=== PATIENT | male | born 2000 | race African-American/Black ===

== ENCOUNTER 2022-01-17 17:17 | Emergency (ER) | payer OTHER, MEDICAID ==
[~2022-01-17] VITALS: Ht 190 cm; Wt 104.0 kg
--- NOTE | 2022-01-17 17:38 | ED Lower Extremity ---
General Chief Complaint: Lower Extremity Stated Complaint: LEFT KNEE INJURY Source: patient Exam Limitations: no limitations (TRE SCHOFIELD) History of Present Illness Date Seen by Provider: Jan 17, 2022 Time Seen by Provider: 17:20 Initial Comments This 21 year old male presents with left knee pain. Patients states he was playing basketball at the gym when he injured his left knee. Patient states he was jumping up and when he landed he began to experience pain. He rates his pain as a 9/10 and characterizes it as sharp and aching. Patient denies previous injury to left knee. Patient states he is unable to bear weight on the left knee but was able to limp with the support of his friend. Patient has not taken ibuprofen or tylenol. Patient states he has had 7 beers since noon today. Patient denies fever, chest pain, SOA, abdominal pain, or paresthesias. Onset: just prior to arrival Severity: moderate Pain/Injury Location: left knee Method of Injury: other (playing basketball) Modifying Factors: Improves With Immobilization; Worse With Movement; Improves With Rest (TRE SCHOFIELD) Allergies and Home Medications Patient Home Medication List Home Medication List Reviewed: Yes (TRE SCHOFIELD) Review of Systems Constitutional: no symptoms reported EENTM: no symptoms reported Respiratory: no symptoms reported Cardiovascular: no symptoms reported Gastrointestinal: no symptoms reported Genitourinary: no symptoms reported Musculoskeletal: joint pain (left knee pain) Skin: no symptoms reported Psychiatric/Neurological: Other (TRE SCHOFIELD) All Other Systems Reviewed Negative Unless Noted: Yes (TRE SCHOFIELD) Past Xgxyudj-Pnstyq-Sxppnk Hx Patient Social History Tobacco Use?: No Substance use?: No Alcohol Use?: Yes Alcohol type: Beer Alcohol Frequency: Daily (patient reports an average of 15 beers daily) (TRE SCHOFIELD) Past Medical History Surgery/Hospitalization HX: testicular implants 2020 Surgeries: Yes (TRE SCHOFIELD) Physical Exam Vital Signs Vital Signs - First Documented 01/17/22 18:51 Temp 35.8 Pulse 115 Resp 16 B/P (MAP) 155/80 (105) Pulse Ox 98 O2 Delivery Room Air (VAUGHN GAGE MD) Vital Signs Capillary Refill : (TRE SCHOFIELD) Height, Weight, BMI Height: '" Weight: lbs. oz. kg; BMI Method: General Appearance: WD/WN, no apparent distress Cardiovascular: no murmur, tachycardia Respiratory: lungs clear, normal breath sounds, no respiratory distress, no accessory muscle use Gastrointestinal: normal bowel sounds Knees: right knee non-tender, right knee normal inspection, right knee normal range of motion, right knee no evidence of injury; left knee pain, left knee soft tissue tenderness (tenderness along tibiofemoral joint line medially and laterally, tenderness of MCL and LCL with palpation, tenderness of patellar and laxity of patellar ligament, tenderness of patellar tendon, tenderness with gentle movement of patella), left knee swelling (mild edema of anterior left knee) Neurologic/Tendon: normal sensation (L4-S1 intact bilaterally), responds to pain Neurologic/Psychiatric: alert, other (patient has had 7 alcoholic drinks (beer) since noon today) Skin: normal color, warm/dry (TRE SCHOFIELD) Progress/Results/Core Measures Results/Orders My Orders Orders - VAUGHN GAGE MD Knee 3 View Left (01/17/22 18:41) Crutches (01/17/22 19:21) Knee Immobilizer (01/17/22 19:21) (VAUGHN GAGE MD) Vital Signs/I&O 01/17/22 18:51 Temp 35.8 Pulse 115 Resp 16 B/P (MAP) 155/80 (105) Pulse Ox 98 O2 Delivery Room Air (VAUGHN GAGE MD) Progress Progress Note : Progress Note No bony injuries were identified on x-rays. Patient was provided with a knee immobilizer and crutches. Focus of injury was difficult to assess as patient seemed to have tenderness throughout the entire knee joint and pain with any axial pressure. Patient was advised to follow-up with orthopedics and consider MRI if not improving rapidly. See discharge instructions for further discussion. (VAUGHN GAGE MD) Diagnostic Imaging Diagonstic Imaging: Xray Plain Films/CT/US/NM/MRI: knee Comments NAME: LEELEE [facility]ILLAFANA [facility] REC#: [id number] PT STATUS: DEP ER : 2002 PHYSICIAN: VAUGHN GAGE MD ADMIT DATE: 01/17/22/ER FS Signed Date of Exam:01/17/22 KNEE 3 VIEW LEFT EXAMINATION: Left knee 3 views HISTORY: Basketball injury. COMPARISON: None available. FINDINGS: The alignment is normal. No fracture is seen. Joint spaces are normal. There is no joint effusion. IMPRESSION: 1. No fracture. Dictated by: Dictated on workstation # [id number] Dict: 01/17/221855 Trans: 01/17/222110 AS6 [id number] Interpreted by: LORELEI CASTILLO MD Electronically signed by: LORELEI CASTILLO MD 01/17/222110 (VAUGHN GAGE MD) Departure Impression Primary Impression: Left knee injury Qualified Codes: S89.92XA - Unspecified injury of left lower leg, initial encounter Disposition: 01 HOME, SELF-CARE Condition: Stable Departure-Patient Inst. Decision time for Depature: 19:19 (VAUGHN GAGE MD) Referrals: EMIGDIO MONREAL MD, TERRY D MD ZAFUTA, MICHAEL P MD Patient Instructions: Knee Sprain ED Add. Discharge Instructions: Use crutches as needed to avoid weightbearing if weightbearing causes pain or instability. You may use a knee immobilizer, knee brace, or wide Dominik bandages to support any instability in your knee. Take ibuprofen up to 600 mg every 6 hours and/or Tylenol up to 1000 mg every 6 hours as needed for pain. Icing in 20-minute intervals and elevating your knee should help with pain and swelling as well. Follow-up with an orthopedic provider or your primary care provider soon as possible. A list of orthopedic providers is provided below. All discharge instructions reviewed with patient and/or family. Voiced understanding. Medical Student Attestation and Attending Note: I have personally interviewed and examined this patient along with Judy Schofield, MS 4. I have reviewed student documentation including history, physical, and assessments. I agree with the documentation except where otherwise noted. Exam: General: Alert, oriented, mild pain related distress, well developed HEENT: Normocephalic and atraumatic Ext: Right knee normal. Left knee diffusely tender, medial aspect greater. Pain with active and passive range of motion. Minimal swelling. Pain with any axial pressure. No discrete area of focal injury identified. No laxity appreciated but patient did not tolerate formal drawer testing. Skin: Warm and dry without rashes (VAUGHN GAGE MD) TRE SCHOFIELD Jan 17, 2022 17:38 VAUGHN GAGE MD Jan 17, 2022 19:21
[2022-01-17 18:51] VITALS: BP 155/80
--- NOTE | 2022-01-17 18:58 | Diagnostic Imaging Report ---
EXAMINATION: Left knee 3 views HISTORY: Basketball injury. COMPARISON: None available. FINDINGS: The alignment is normal. No fracture is seen. Joint spaces are normal. There is no joint effusion. IMPRESSION: 1. No fracture. Dictated by: Dictated on workstation # [id number]
== END 2022-01-17 19:50 | disposition home or self-care (01) ==
LOC: ER FS 17:21
DX: S89.92XA Unspecified injury of left lower leg, initial encounter (principal); X58.XXXA Exposure to other specified factors, initial encounter; Y93.67 Activity, basketball; Y92.39 Other specified sports and athletic area as the place of occurrence of the external cause
CPT/HCPCS: 73562; 99282; L1830

== ENCOUNTER → 2022-02-06 | Outpatient (CLI) | payer OTHER, MEDICAID ==
--- NOTE | 2022-02-06 22:09 | Diagnostic Imaging Report ---
PROCEDURE: MRI left joint lower extremity without contrast. TECHNIQUE: Multiplanar, multisequence non contrast-enhanced MRI of the left lower extremity was accomplished. INDICATION: Medial meniscal tear suspected. Knee pain after basketball injury. EXAMINATION: Left knee MRI without contrast 02/06/2022. FINDINGS: There is marked diffuse T2 hyperintensity throughout the anterior border of the lateral femoral condyle. This is most consistent with bone contusion. This can be seen with a history of patellar dislocation. Very mild edema noted along the medial border of the patella suggesting bone contusion. There is edema deep to the posterior aspect of the medial retinaculum without complete tear of the retinaculum noted. Underlying joint fluid is noted. Very mild edema is also noted along the medial border of the medial femoral condyle consistent with bone contusion. The extensor mechanism is intact. The ACL and PCL intact. The MCL and the lateral collateral ligamentous complex intact. Deep to the proximal MCL there is a well corticated osseous fragment possibly due to an old MCL injury. There are lobular cystic areas anterior to the anterior horn of the lateral meniscus. There is high signal within the intrasubstance of the anterior horn of the lateral meniscus predominantly due to myxoid degeneration however given the adjacent cystic areas, a small meniscal tear not excluded. Correlate with patient's symptoms. Medial meniscus appears intact. Cartilage in the medial and lateral compartments maintained. Patellofemoral cartilage appears preserved. There is minimal joint fluid present. IMPRESSION: 1. Multifocal areas of T2 hyperintensity within the osseous structures most pronounced within the anterior and mid aspect of the lateral femoral condyle consistent with bone contusion. Correlate clinically for a possible patellar dislocation. 2. Mild edema along the posterior aspect of the medial retinaculum likely due to a sprain with no discontinuity noted. Adjacent joint fluid present. 3. Cystic structures anterior to the medial aspect of the anterior horn of the lateral meniscus, possibly parameniscal cyst versus intraarticular ganglia. High signal in the intrasubstance of the anterior horn of the lateral meniscus could be myxoid degeneration however a tear is not excluded. Correlate with symptoms. 4. Medial meniscus ligaments and tendons intact Dictated by: Dictated on workstation # [id number]
== END ==
LOC: RAD 14:14
PROVIDERS: ATTEND Orthopaedic Surgery
DX: S83.242A Other tear of medial meniscus, current injury, left knee, initial encounter (principal); M25.862 Other specified joint disorders, left knee; Y93.67 Activity, basketball
CPT/HCPCS: 73721

== ENCOUNTER → 2022-02-15 | Outpatient (CLI) | payer OTHER, MEDICAID | LOC: ORTHO 14:30 | PROVIDERS: ATTEND Orthopaedic Surgery | DX: S83.003A Unspecified subluxation of unspecified patella, initial encounter (principal); X58.XXXA Exposure to other specified factors, initial encounter | CPT/HCPCS: 99213 ==